=== PATIENT | female | born 1985 | race Caucasian/White ===

== ENCOUNTER 2017-02-23 22:13 | Emergency (ER) | payer OTHER ==
[2017-02-23 23:21] LABS: Hematocrit 34 % (35-47); Hemoglobin 11.3 g/dl (12.0-16.0); Mean Corpuscular HGB Conc 33 g/dl (31-36); Mean Corpuscular Hemoglobin 29 pg (27-31); Mean Corpuscular Volume 87 fL (80-97); Mean Platelet Volume 9 um3 (7.4-10.4); Red Blood Count 3.91 10^6/ul (4.0-5.4); Red Cell Distribution Width 14 % (10.5-15); White Blood Count 9.1 10^3/ul (3.5-10.8)
[2017-02-23 23:23] LABS: Urine Bilirubin Negative (Negative); Urine Glucose Negative (Negative); Urine Nitrite Negative (Negative)
[2017-02-23 23:24] LABS: Add Diff/Slide Review? Slide Review Added; Comments Flag Yes
[2017-02-23 23:37] LABS: ALT 45 U/L (7-52); AST 23 U/L (13-39); Albumin 4.1 g/dL (3.2-5.2); Alkaline Phosphatase 48 U/L (34-104); Anion Gap 7 mmol/L (2-11); BUN/Creatinine Ratio 23.2 (8-20); Blood Urea Nitrogen 16 mg/dL (6-24); C Reactive Protein 8.72 mg/L (< 5.00); CO2 Carbon Dioxide 26 mmol/L (22-32); Calcium 9.4 mg/dL (8.6-10.3); Chloride 100 mmol/L (101-111); Creatine Kinase 79 U/L (10-223); Glucose 93 mg/dL (70-100); Lipase 22 U/L (11.0-82.0); Magnesium 1.9 mg/dL (1.9-2.7); Sodium 133 mmol/L (133-145); Total Protein 7.1 g/dL (6.4-8.9)
[2017-02-23 23:50] LABS: TSH (Thyroid Stimulating Horm) 3.07 mcIU/mL (0.34-5.60)
[2017-02-24] MEDS ORDERED: Iohexol 350* (CONTRAST) 500 ML MDV IV ONE (01:58)
[2017-02-24] MEDS ORDERED: Ondansetron ODT TAB* 4 MG ONE (03:45)
[2017-02-24] MEDS ORDERED: Ondansetron ODT TAB* 4 MG PO ONE (03:47)
--- NOTE | 2017-02-24 04:56 | ED ---
Brooklynn Du Anna, scribed for Jordy Au on 02/24/17 at 0033 . Progress - Progress Note Progress Note: This is a 31 y/o female presenting with swelling in the upper legs. Labs, CT, and US were done and were all within normal limits. She will be discharged with a diagnosis of dependent edema. Course/Dx - Diagnoses Provider Diagnoses: Peripheral edema Diagnostics - Vital Signs Vital Signs Temp Pulse Resp BP Pulse Ox 02/23/17 23:10 71 98 02/23/17 22:30 74 108/68 96 02/23/17 22:23 76 97 02/23/17 22:21 124/68 02/23/17 22:17 98.9 F 74 16 124/68 96 - Laboratory Lab Results: Lab Results 02/23/17 02/23/17 02/23/17 Range/Units 23:05 23:05 23:05 WBC 9.1 (3.5-10.8) 10^3/ul RBC 3.91 L (4.0-5.4) 10^6/ul Hgb 11.3 L (12.0-16.0) g/dl Hct 34 L (35-47) % MCV 87 (80-97) fL MCH 29 (27-31) pg MCHC 33 (31-36) g/dl RDW 14 (10.5-15) % Plt Count 195 (150-450) 10^3/ul MPV 9 (7.4-10.4) um3 Neut % (Auto) 34.1 L (38-83) % Lymph % (Auto) 54.2 H (25-47) % Oliver % (Auto) 8.6 (1-9) % Eos % (Auto) 2.5 (0-6) % Baso % (Auto) 0.6 (0-2) % Absolute Neuts (auto) 3.1 (1.5-7.7) 10^3/ul Absolute Lymphs (auto) 4.9 H (1.0-4.8) 10^3/ul Absolute Monos (auto) 0.8 (0-0.8) 10^3/ul Absolute Eos (auto) 0.2 (0-0.6) 10^3/ul Absolute Basos (auto) 0.1 (0-0.2) 10^3/ul Absolute Nucleated RBC 0.01 10^3/ul Nucleated RBC % 0.1 INR (Anticoag Therapy) 0.85 L (0.89-1.11) APTT 28.7 (26.0-36.3) seconds D-Dimer, Quantitative 202 (Less Than 230) ng/mL Sodium (133-145) mmol/L Potassium (3.5-5.0) mmol/L Chloride (101-111) mmol/L Carbon Dioxide (22-32) mmol/L Anion Gap (2-11) mmol/L BUN (6-24) mg/dL Creatinine (0.51-0.95) mg/dL Est GFR ( Amer) (>60) Est GFR (Non-Af Amer) (>60) BUN/Creatinine Ratio (8-20) Glucose (70-100) mg/dL Lactic Acid (0.5-2.0) mmol/L Calcium (8.6-10.3) mg/dL Magnesium (1.9-2.7) mg/dL Total Bilirubin (0.2-1.0) mg/dL AST (13-39) U/L ALT (7-52) U/L Alkaline Phosphatase (34-104) U/L Total Creatine Kinase (10-223) U/L CK-MB (CK-2) (0.6-6.3) ng/mL Troponin I (<0.04) ng/mL C-Reactive Protein (< 5.00) mg/L B-Natriuretic Peptide ( - 100) pg/mL Total Protein (6.4-8.9) g/dL Albumin (3.2-5.2) g/dL Globulin (2-4) g/dL Albumin/Globulin Ratio (1-3) Lipase (11.0-82.0) U/L TSH (0.34-5.60) mcIU/mL Beta HCG, Quant mIU/mL Urine Color Yellow Urine Appearance Clear Urine pH 6.0 (5-9) Ur Specific [place] 1.018 (1.010-1.030) Urine Protein Negative (Negative) Urine Ketones Negative (Negative) Urine Blood Negative (Negative) Urine Nitrate Negative (Negative) Urine Bilirubin Negative (Negative) Urine Urobilinogen Negative (Negative) Ur Leukocyte Esterase Negative (Negative) Urine Glucose Negative (Negative) Urine Ascorbic Acid * H (Negative) 02/23/17 02/23/17 02/23/17 Range/Units 23:05 23:05 23:05 WBC (3.5-10.8) 10^3/ul RBC (4.0-5.4) 10^6/ul Hgb (12.0-16.0) g/dl Hct (35-47) % MCV (80-97) fL MCH (27-31) pg MCHC (31-36) g/dl RDW (10.5-15) % Plt Count (150-450) 10^3/ul MPV (7.4-10.4) um3 Neut % (Auto) (38-83) % Lymph % (Auto) (25-47) % Oliver % (Auto) (1-9) % Eos % (Auto) (0-6) % Baso % (Auto) (0-2) % Absolute Neuts (auto) (1.5-7.7) 10^3/ul Absolute Lymphs (auto) (1.0-4.8) 10^3/ul Absolute Monos (auto) (0-0.8) 10^3/ul Absolute Eos (auto) (0-0.6) 10^3/ul Absolute Basos (auto) (0-0.2) 10^3/ul Absolute Nucleated RBC 10^3/ul Nucleated RBC % INR (Anticoag Therapy) (0.89-1.11) APTT (26.0-36.3) seconds D-Dimer, Quantitative (Less Than 230) ng/mL Sodium 133 (133-145) mmol/L Potassium 4.0 (3.5-5.0) mmol/L Chloride 100 L (101-111) mmol/L Carbon Dioxide 26 (22-32) mmol/L Anion Gap 7 (2-11) mmol/L BUN 16 (6-24) mg/dL Creatinine 0.69 (0.51-0.95) mg/dL Est GFR ( Amer) 126.0 (>60) Est GFR (Non-Af Amer) 98.0 (>60) BUN/Creatinine Ratio 23.2 H (8-20) Glucose 93 (70-100) mg/dL Lactic Acid 1.1 (0.5-2.0) mmol/L Calcium 9.4 (8.6-10.3) mg/dL Magnesium 1.9 (1.9-2.7) mg/dL Total Bilirubin 0.20 (0.2-1.0) mg/dL AST 23 (13-39) U/L ALT 45 (7-52) U/L Alkaline Phosphatase 48 (34-104) U/L Total Creatine Kinase 79 (10-223) U/L CK-MB (CK-2) 1.9 (0.6-6.3) ng/mL Troponin I 0.00 (<0.04) ng/mL C-Reactive Protein 8.72 H (< 5.00) mg/L B-Natriuretic Peptide 17 ( - 100) pg/mL Total Protein 7.1 (6.4-8.9) g/dL Albumin 4.1 (3.2-5.2) g/dL Globulin 3.0 (2-4) g/dL Albumin/Globulin Ratio 1.4 (1-3) Lipase 22 (11.0-82.0) U/L TSH 3.07 (0.34-5.60) mcIU/mL Beta HCG, Quant < 0.60 mIU/mL Urine Color Urine Appearance Urine pH (5-9) Ur Specific [place] (1.010-1.030) Urine Protein (Negative) Urine Ketones (Negative) Urine Blood (Negative) Urine Nitrate (Negative) Urine Bilirubin (Negative) Urine Urobilinogen (Negative) Ur Leukocyte Esterase (Negative) Urine Glucose (Negative) Urine Ascorbic Acid (Negative) Result Diagrams: 02/23/17 23:05 02/23/17 23:05 Lab Statement: Any lab studies that have been ordered have been reviewed, and results considered in the medical decision making process. - Ultrasound No standard instances Ultrasound Interpretation: No Acute Changes Ultrasound Interpretation Completed By: Radiologist - BILATERAL LE VENOUS DUPLEX IMPRESSION: Negative for DVT The documentation as recorded by the Brooklynn klein Anna accurately reflects the service I personally performed and the decisions made by Angely morales Emmanuel.
[2017-02-24 05:08] VITALS: BP 125/67
--- NOTE | 2017-02-24 10:58 | RAD ---
HISTORY: Bilateral pedal edema TECHNIQUE: Multiple transverse and longitudinal ultrasound images were obtained of the veins of the bilateral lower extremity using grayscale, color Doppler, and spectral Doppler imaging with and without compression and with augmentation. FINDINGS: VEINS: The common femoral vein, deep femoral vein, femoral vein and popliteal vein are compressible throughout their course, with normal flow on color Doppler imaging and normal response to augmentation on spectral Doppler imaging. SOFT TISSUES: Grossly normal. No large popliteal fossa cyst was identified. IMPRESSION: No sonographic evidence of deep vein thrombosis.
--- NOTE | 2017-02-24 11:36 | RAD ---
INDICATION: Shortness of breath, bloating abdominal pain and pedal edema COMPARISON: None. TECHNIQUE: Multidetector CT images of the chest, abdomen and pelvis were obtained from the lung apices to the ischial tuberosities after the injection of 100 mL Omnipaque 350. The patient received oral contrast as well. CHEST: During thoracic imaging the injected contrast is seen filling the heart, aorta and arterial vascular system. Bolus timing is not conducive to evaluating for acute pulmonary embolism. The lungs are clear. There are no large pleural effusions. There is no mediastinal or hilar lymphadenopathy. The heart and major vascular structures are grossly normal in appearance. ABDOMEN \T\ PELVIS: The liver is enlarged measuring up to 23.1 cm in greatest cephalocaudal dimension. The liver parenchyma is homogenously hypodense relative to the spleen. There are no focal enhancing masses or surface irregularity. The main portal vein is mildly enlarged measuring 16 mm in diameter. The normally attenuating spleen measures 14 cm in greatest axial dimension. The pancreas is grossly normal in appearance. The gallbladder is mostly contracted which prevents meaningful evaluation. At the left adrenal gland (image 24) there is a low-density 4 mm structure that is incompletely characterized on this CT examination but is most consistent with a lipoma. The kidneys are normal in appearance without focal mass, calcification or signs of hydronephrosis. The urinary bladder is nearly completely decompressed which prevents reliable evaluation. The oral contrast has progressed as far as the descending colon. The small and large bowel are not distended. The 7 mm partially gas-filled appendix is identified in the right lower quadrant (axial image 49 and coronal image 59). There is no gross retroperitoneal or mesenteric lymphadenopathy. The pelvic viscera is normal in appearance. Surgical clips at the pelvic adnexa are most consistent with reported history of tubal ligation. The abdominal aorta and iliac arteries are normal in course and diameter. Incidental note is made of a left retroaortic renal vein. Multilevel degenerative changes of the thoracic and lumbar spine include loss of intervertebral disc height and mild marginal osteophyte formation. There are no sinister bone lesions. IMPRESSION: 1. Bolus timing is inadequate for evaluation of pulmonary embolism. This study is nondiagnostic for pulmonary embolism. 2. Hepatosplenomegaly with likely hepatic steatosis or other chronic infiltrative disease of the liver. Please correlate to LFTs. 3. No acute inflammatory disease or obstruction identified in the gastrointestinal tract. #4 additional chronic, degenerative and iatrogenic findings described in the body the report unlikely to be directly related to the patient's current presentation.
--- NOTE | 2017-03-06 08:38 | ED ---
Chase Du Billy, scribed for Noel Brito MD on 02/23/17 at 2245 . Complex/Multi-Sys Presentation - HPI Summary HPI Summary: Patient is a 31 year-old female coming to [facility] for evaluation of numerous complaints. She states that for the last 3 weeks, she has had abdominal bloating. Two weeks ago, she began to have intermittent racing palpitations which last for minutes at a time. About five days ago, she began to have shortness of breath. She denies any history of blood clots. Denies any oral control use. LMP 4 weeks ago. - History Of Current Complaint Chief Complaint: EDExtremityLower Time Seen by Provider: 02/23/17 22:38 Hx Obtained From: Patient Onset/Duration: Gradual Onset, Lasting Weeks Timing: Intermittent, Lasting: Severity Currently: Moderate Severity Initially: Moderate Aggravating Factor(s): none Alleviating Factor(s): none - Allergies/Home Medications Allergies/Adverse Reactions: Allergies Allergy/AdvReac Type Severity Reaction Status Date / Time Diphenhydramine Allergy Dizziness Verified 02/23/17 22:26 [From Benadryl] Hydroxyzine Allergy See Comment Verified 02/23/17 22:26 Latex Allergy Rash Verified 02/23/17 22:26 PMH/Surg Hx/FS Hx/Imm Hx Cardiovascular History: Reports: Hx Hypertension GI History: Reports: Hx Irritable Bowel Neurological History: Reports: Hx Seizures Psychiatric History: Reports: Hx Anxiety - Surgical History Surgery Procedure, Year, and Place: Tubal ligation 2005 - Immunization History Date of Tetanus Vaccine: utd Date of Influenza Vaccine: utd Infectious Disease History: No Infectious Disease History: Denies: Traveled Outside the [place] in Last 30 Days - Family History Known Family History: Positive: Cardiac Disease - Social History Alcohol Use: None Substance Use Type: Reports: None Smoking Status (MU): Former Smoker Review of Systems Positive: Palpitations. Negative: Chest Pain Positive: Shortness Of Breath Gastrointestinal: Other - abdominal bloating Positive: Edema All Other Systems Reviewed And Are Negative: Yes Physical Exam Triage Information Reviewed: Yes Vital Signs On Initial Exam: Initial Vitals Temp Pulse Resp BP Pulse Ox 98.9 F 74 16 124/68 96 02/23/17 22:17 02/23/17 22:17 02/23/17 22:17 02/23/17 22:17 02/23/17 22:17 Vital Signs Reviewed: Yes Appearance: Positive: Well-Appearing, No Pain Distress Skin: Positive: Warm, Skin Color Reflects Adequate Perfusion, Dry Head/Face: Positive: Normal Head/Face Inspection Eyes: Positive: EOMI, EDWARD ENT: Positive: Normal ENT inspection Neck: Positive: Supple, Nontender Respiratory/Lung Sounds: Positive: Clear to Auscultation, Breath Sounds Present Cardiovascular: Positive: RRR Abdomen Description: Positive: Distended, Other: - Minimal diffuse tenderness. Musculoskeletal: Positive: Strength/ROM Intact, Edema Left - Bilateral pedal edema., Edema Right - Bilateral pedal edema. Neurological: Positive: Normal, Sensory/Motor Intact, Alert, Oriented to Person Place, Time Psychiatric: Positive: Affect/Mood Appropriate - [place] Coma Scale Coma Scale Total: 15 Diagnostics - Vital Signs Vital Signs Temp Pulse Resp BP Pulse Ox 02/23/17 22:17 98.9 F 74 16 124/68 96 - Laboratory Lab Results: Lab Results 02/23/17 02/23/17 02/23/17 Range/Units 23:05 23:05 23:05 WBC 9.1 (3.5-10.8) 10^3/ul RBC 3.91 L (4.0-5.4) 10^6/ul Hgb 11.3 L (12.0-16.0) g/dl Hct 34 L (35-47) % MCV 87 (80-97) fL MCH 29 (27-31) pg MCHC 33 (31-36) g/dl RDW 14 (10.5-15) % Plt Count 195 (150-450) 10^3/ul MPV 9 (7.4-10.4) um3 Neut % (Auto) 34.1 L (38-83) % Lymph % (Auto) 54.2 H (25-47) % [place] % (Auto) 8.6 (1-9) % Eos % (Auto) 2.5 (0-6) % Baso % (Auto) 0.6 (0-2) % Absolute Neuts (auto) 3.1 (1.5-7.7) 10^3/ul Absolute Lymphs (auto) 4.9 H (1.0-4.8) 10^3/ul Absolute Monos (auto) 0.8 (0-0.8) 10^3/ul Absolute Eos (auto) 0.2 (0-0.6) 10^3/ul Absolute Basos (auto) 0.1 (0-0.2) 10^3/ul Absolute Nucleated RBC 0.01 10^3/ul Nucleated RBC % 0.1 INR (Anticoag Therapy) 0.85 L (0.89-1.11) APTT 28.7 (26.0-36.3) seconds D-Dimer, Quantitative 202 (Less Than 230) ng/mL Sodium (133-145) mmol/L Potassium (3.5-5.0) mmol/L Chloride (101-111) mmol/L Carbon Dioxide (22-32) mmol/L Anion Gap (2-11) mmol/L BUN (6-24) mg/dL Creatinine (0.51-0.95) mg/dL Est GFR ( Amer) (>60) Est GFR (Non-Af Amer) (>60) BUN/Creatinine Ratio (8-20) Glucose (70-100) mg/dL Lactic Acid (0.5-2.0) mmol/L Calcium (8.6-10.3) mg/dL Magnesium (1.9-2.7) mg/dL Total Bilirubin (0.2-1.0) mg/dL AST (13-39) U/L ALT (7-52) U/L Alkaline Phosphatase (34-104) U/L Total Creatine Kinase (10-223) U/L CK-MB (CK-2) (0.6-6.3) ng/mL Troponin I (<0.04) ng/mL C-Reactive Protein (< 5.00) mg/L B-Natriuretic Peptide ( - 100) pg/mL Total Protein (6.4-8.9) g/dL Albumin (3.2-5.2) g/dL Globulin (2-4) g/dL Albumin/Globulin Ratio (1-3) Lipase (11.0-82.0) U/L TSH (0.34-5.60) mcIU/mL Beta HCG, Quant mIU/mL Urine Color Yellow Urine Appearance Clear Urine pH 6.0 (5-9) Ur Specific [place] 1.018 (1.010-1.030) Urine Protein Negative (Negative) Urine Ketones Negative (Negative) Urine Blood Negative (Negative) Urine Nitrate Negative (Negative) Urine Bilirubin Negative (Negative) Urine Urobilinogen Negative (Negative) Ur Leukocyte Esterase Negative (Negative) Urine Glucose Negative (Negative) Urine Ascorbic Acid * H (Negative) 02/23/17 02/23/17 02/23/17 Range/Units 23:05 23:05 23:05 WBC (3.5-10.8) 10^3/ul RBC (4.0-5.4) 10^6/ul Hgb (12.0-16.0) g/dl Hct (35-47) % MCV (80-97) fL MCH (27-31) pg MCHC (31-36) g/dl RDW (10.5-15) % Plt Count (150-450) 10^3/ul MPV (7.4-10.4) um3 Neut % (Auto) (38-83) % Lymph % (Auto) (25-47) % [place] % (Auto) (1-9) % Eos % (Auto) (0-6) % Baso % (Auto) (0-2) % Absolute Neuts (auto) (1.5-7.7) 10^3/ul Absolute Lymphs (auto) (1.0-4.8) 10^3/ul Absolute Monos (auto) (0-0.8) 10^3/ul Absolute Eos (auto) (0-0.6) 10^3/ul Absolute Basos (auto) (0-0.2) 10^3/ul Absolute Nucleated RBC 10^3/ul Nucleated RBC % INR (Anticoag Therapy) (0.89-1.11) APTT (26.0-36.3) seconds D-Dimer, Quantitative (Less Than 230) ng/mL Sodium 133 (133-145) mmol/L Potassium 4.0 (3.5-5.0) mmol/L Chloride 100 L (101-111) mmol/L Carbon Dioxide 26 (22-32) mmol/L Anion Gap 7 (2-11) mmol/L BUN 16 (6-24) mg/dL Creatinine 0.69 (0.51-0.95) mg/dL Est GFR ( Amer) 126.0 (>60) Est GFR (Non-Af Amer) 98.0 (>60) BUN/Creatinine Ratio 23.2 H (8-20) Glucose 93 (70-100) mg/dL Lactic Acid 1.1 (0.5-2.0) mmol/L Calcium 9.4 (8.6-10.3) mg/dL Magnesium 1.9 (1.9-2.7) mg/dL Total Bilirubin 0.20 (0.2-1.0) mg/dL AST 23 (13-39) U/L ALT 45 (7-52) U/L Alkaline Phosphatase 48 (34-104) U/L Total Creatine Kinase 79 (10-223) U/L CK-MB (CK-2) 1.9 (0.6-6.3) ng/mL Troponin I 0.00 (<0.04) ng/mL C-Reactive Protein 8.72 H (< 5.00) mg/L B-Natriuretic Peptide 17 ( - 100) pg/mL Total Protein 7.1 (6.4-8.9) g/dL Albumin 4.1 (3.2-5.2) g/dL Globulin 3.0 (2-4) g/dL Albumin/Globulin Ratio 1.4 (1-3) Lipase 22 (11.0-82.0) U/L TSH 3.07 (0.34-5.60) mcIU/mL Beta HCG, Quant < 0.60 mIU/mL Urine Color Urine Appearance Urine pH (5-9) Ur Specific [place] (1.010-1.030) Urine Protein (Negative) Urine Ketones (Negative) Urine Blood (Negative) Urine Nitrate (Negative) Urine Bilirubin (Negative) Urine Urobilinogen (Negative) Ur Leukocyte Esterase (Negative) Urine Glucose (Negative) Urine Ascorbic Acid (Negative) Result Diagrams: 02/23/17 23:05 02/23/17 23:05 Lab Statement: Any lab studies that have been ordered have been reviewed, and results considered in the medical decision making process. Complex Multi-Symp Course/Dx Course Of Treatment: no critical care time Assessment/Plan: STABLE IN ED. DISPOSITION PENDING AT SHIFT CHANGE. - Diagnoses Provider Diagnoses: Peripheral edema Discharge - Discharge Plan Condition: Stable Disposition: OTHER Discharge Disposition Comment: C Patient Education Materials: Edema (ED) Referrals: Lorri Daniels [Primary Care Provider] - The documentation as recorded by the Chase klein Billy accurately reflects the service I personally performed and the decisions made by me, Noel Brito MD.
== END 2017-02-24 04:50 | disposition home or self-care (01) ==
LOC: ED 22:13
DX: R60.0 Localized edema (principal)
CPT/HCPCS: 36415; 71275; 74177; 80053; 81003; 82550; 82553; 83605; 83690; 83735; 83880; 84443; 84484; 84702; 85025; 85379; 85610; 85730; 86140; 93970; 99282; A9270-GY; Q9967

== ENCOUNTER 2017-03-03 20:32 | Emergency (ER) | payer OTHER ==
[2017-03-03] MEDS ORDERED: Gabapentin CAP(*) 300 MG PO ONE (21:08)
--- NOTE | 2017-03-03 21:40 | ED ---
Angel Du Michael, scribed for Anton Duarte MD on 03/03/17 at 2110 . Psychiatric Complaint - HPI Summary HPI Summary: 31 y/o female was BIBA to the ED presenting with a panic attack and nerve pain that started 3 days ago and has worsened since the time of onset. The pt has been at [facility] for 3 weeks, and she states that currently she is out of Gabapentin and states the insurance company will not pay for it anymore. She normally takes 1800mg per day. The pt denies SI or HI The PMHx is significant for anxiety, sz, and HTN. - History Of Current Complaint Chief Complaint: EDGeneral Time Seen by Provider: 03/03/17 20:52 Hx Obtained From: Patient, EMS, Medical Records Onset/Duration: Sudden Onset, Lasting Days, Still Present Timing: Constant Severity Initially: Moderate Severity Currently: Moderate Character: Anxious Aggravating Factor(s): Recent Stress - out of medication Alleviating Factor(s): Nothing Associated Signs And Symptoms: Positive: Negative Has Suicidal: Denies: Thoughts, With A Plan Has Homicidal: Denies: Thoughts, With A Plan - Allergies/Home Medications Allergies/Adverse Reactions: Allergies Allergy/AdvReac Type Severity Reaction Status Date / Time Diphenhydramine Allergy Dizziness Verified 02/23/17 22:26 [From Benadryl] Hydroxyzine Allergy See Comment Verified 02/23/17 22:26 Latex Allergy Rash Verified 02/23/17 22:26 PMH/Surg Hx/FS Hx/Imm Hx Endocrine/Hematology History: Denies: Hx Diabetes Cardiovascular History: Reports: Hx Hypertension History: Denies: Hx Renal Disease Neurological History: Reports: Hx Seizures Psychiatric History: Reports: Hx Anxiety - Surgical History Surgery Procedure, Year, and Place: tubal ligation - Immunization History Date of Tetanus Vaccine: utd Date of Influenza Vaccine: utd Infectious Disease History: Denies: Traveled Outside the [place] in Last 30 Days - Social History Occupation: Unemployed Lives: [facility] Alcohol Use: None Substance Use Type: Reports: Prescribed Substance Use Comment - Amount & Last Used: vicodin Smoking Status (MU): Former Smoker Review of Systems Negative: Fever Psychological: Other - negative SI and HI Positive: Anxious - and nerve pain. All Other Systems Reviewed And Are Negative: Yes Physical Exam Triage Information Reviewed: Yes Vital Signs On Initial Exam: Initial Vitals Temp Pulse Resp BP Pulse Ox 98.9 F 91 22 158/99 99 03/03/17 20:35 03/03/17 20:35 03/03/17 20:35 03/03/17 20:35 03/03/17 20:35 Vital Signs Reviewed: Yes Appearance: Positive: Well-Appearing, No Pain Distress Skin: Positive: Warm, Skin Color Reflects Adequate Perfusion, Dry Head/Face: Positive: Normal Head/Face Inspection Eyes: Positive: Normal ENT: Positive: Normal ENT inspection Neck: Positive: Supple, Nontender Respiratory/Lung Sounds: Positive: Clear to Auscultation, Breath Sounds Present Cardiovascular: Positive: RRR Abdomen Description: Positive: Nontender, Soft Bowel Sounds: Positive: Present Musculoskeletal: Positive: Normal Neurological: Positive: Normal Psychiatric: Positive: Anxious Diagnostics - Vital Signs Vital Signs Temp Pulse Resp BP Pulse Ox 03/03/17 20:35 98.9 F 91 22 158/99 99 - Laboratory Lab Statement: Any lab studies that have been ordered have been reviewed, and results considered in the medical decision making process. Course/Dx - Course Course Of Treatment: Ms. Louie is clearly worried about her gabapentin. I gave her a dose here and 6 to go to get her through the next couple of days. - Differential Dx/Clinical Impression Provider Diagnosis: Panic attack Discharge - Discharge Plan Condition: Stable Disposition: HOME Referrals: Lorri Daniels [Primary Care Provider] - The documentation as recorded by the Angel klein Michael accurately reflects the service I personally performed and the decisions made by me, Anton Duarte MD.
[2017-03-03 21:43] VITALS: BP 137/75
[2017-03-03] MEDS ORDERED: Gabapentin CAP(*) 300 MG PO SCH (22:00)
== END 2017-03-03 21:46 | disposition home or self-care (01) ==
LOC: ED 20:32
DX: F41.0 Panic disorder [episodic paroxysmal anxiety] (principal); F41.9 Anxiety disorder, unspecified; Z87.891 Personal history of nicotine dependence
CPT/HCPCS: 99282; A9270-GY

== ENCOUNTER 2017-03-12 19:16 | Emergency (ER) | payer OTHER ==
[2017-03-12] MEDS ORDERED: Acetaminophen TAB* 325 MG PO ONE (19:52)
[2017-03-12 20:11] LABS: Hematocrit 35 % (35-47); Hemoglobin 12.1 g/dl (12.0-16.0); Mean Corpuscular HGB Conc 34 g/dl (31-36); Mean Corpuscular Hemoglobin 30 pg (27-31); Mean Corpuscular Volume 87 fL (80-97); Mean Platelet Volume 9 um3 (7.4-10.4); Red Blood Count 4.05 10^6/ul (4.0-5.4); Red Cell Distribution Width 14 % (10.5-15); White Blood Count 8.7 10^3/ul (3.5-10.8)
[2017-03-12 20:30] LABS: ALT 43 U/L (7-52); Albumin 4.2 g/dL (3.2-5.2); Alkaline Phosphatase 55 U/L (34-104); BUN/Creatinine Ratio 17.2 (8-20); Blood Urea Nitrogen 16 mg/dL (6-24); CO2 Carbon Dioxide 23 mmol/L (22-32); Chloride 101 mmol/L (101-111); EGFR African American 89.3 (>60); EGFR Non-African American 69.4 (>60); Globulin 2.9 g/dL (2-4); Glucose 143 mg/dL (70-100); Total Protein 7.1 g/dL (6.4-8.9)
[2017-03-12 20:43] LABS: AST 29 U/L (13-39); Potassium 4.2 mmol/L (3.5-5.0)
[2017-03-12 20:47] LABS: Acetaminophen < 15 mcg/mL; Alcohol < 10 mg/dL (<10); Salicylate < 2.50 mg/dL (<30)
[2017-03-12 21:07] LABS: Urine Bilirubin Negative (Negative); Urine Glucose Negative (Negative); Urine Nitrite Negative (Negative)
[2017-03-12 21:31] LABS: Benzodiazepine Urine Screen None Detected (None Detect)
--- NOTE | 2017-03-12 22:01 | ED ---
Reggie Du Benjamin, scribed for Todd Kuhn MD on 03/12/17 at 1929 . Psychiatric Complaint - HPI Summary HPI Summary: 31yo female c/o feeling anxious, having mood swings, and unable to sleep at night for the past few days. Pt s PCP recently switched her meds, been off Depakote and dropped Prozac dose from 40ml to 20ml. Hx includes bipolar, anxiety , and HTN. FHx of DM and HTN. Pt does not smoke or drink. - History Of Current Complaint Chief Complaint: EDMentalHealth Time Seen by Provider: 03/12/17 19:20 Hx Obtained From: Patient ?: No Onset/Duration: Sudden Onset, Lasting Days, Still Present Timing: Constant Severity Initially: Mild Severity Currently: Mild Character: Anxious Aggravating Factor(s): Medication Non-compliance - recent med change Alleviating Factor(s): Nothing Associated Signs And Symptoms: Positive: Negative - Allergies/Home Medications Allergies/Adverse Reactions: Allergies Allergy/AdvReac Type Severity Reaction Status Date / Time Hydroxyzine Allergy See Comment Verified 03/12/17 19:28 Latex Allergy Rash Verified 03/12/17 19:28 Home Medications: Home Medications Divalproex Sodium [Depakote] 250 mg PO BID 03/12/17 [History Confirmed 03/12/17] FLUoxetine CAP* [PROzac CAP*] 20 mg PO DAILY 03/12/17 [History Confirmed ] Gabapentin TAB(NF) [Neurontin 600 mg TAB(NF)] 600 mg PO TID 03/12/17 [History Confirmed 03/12/17] Hydrochlorothiazide [Microzide-] 12.5 mg PO DAILY 03/12/17 [History Confirmed ] Lisinopril [Prinivil TAB 20 mg] 20 mg PO DAILY 03/12/17 [History Confirmed 03/12] Melatonin 5 mg PO BEDTIME 03/12/17 [History Confirmed 03/12/17] Metoprolol Tartrate [Lopressor] 50 mg PO BID 03/12/17 [History Confirmed ] Mirtazapine 45 mg PO BEDTIME 03/12/17 [History Confirmed 03/12/17] Naltrexone (NF) 50 mg PO BEDTIME 03/12/17 [History Confirmed 03/12/17] Nicotine [Gnp Nicotine Transdermal] 7 mg TOPICAL DAILY 03/12/17 [History Confirmed 03/12/17] Omeprazole CAP* [Prilosec CAP* 20 MG] 40 mg PO DAILY 03/12/17 [History Confirmed 03/12/17] cloNIDine TAB* [Catapres 0.1 MG TAB*] 0.1 mg PO DAILY 03/12/17 [History Confirmed 03/12/17] PMH/Surg Hx/FS Hx/Imm Hx Endocrine/Hematology History: Denies: Hx Diabetes Cardiovascular History: Reports: Hx Hypertension History: Denies: Hx Renal Disease Neurological History: Reports: Hx Seizures Psychiatric History: Reports: Hx Anxiety - Surgical History Surgery Procedure, Year, and Place: tubal ligation - Immunization History Date of Tetanus Vaccine: utd Date of Influenza Vaccine: utd Infectious Disease History: No Infectious Disease History: Denies: Traveled Outside the [place] in Last 30 Days - Family History Known Family History: Positive: Hypertension, Diabetes Negative: Cardiac Disease - Social History Occupation: Unemployed Lives: Alone Alcohol Use: None Substance Use Type: Reports: Prescribed Substance Use Comment - Amount & Last Used: vicodin Smoking Status (MU): Former Smoker Review of Systems Constitutional: Negative Eyes: Negative ENT: Negative Cardiovascular: Negative Respiratory: Negative Gastrointestinal: Negative Genitourinary: Negative Musculoskeletal: Negative Skin: Negative Neurological: Negative Positive: Anxious All Other Systems Reviewed And Are Negative: Yes Physical Exam Triage Information Reviewed: Yes Vital Signs On Initial Exam: Initial Vitals Temp Pulse Resp BP Pulse Ox 99.8 F 90 16 140/71 97 03/12/17 19:23 03/12/17 19:23 03/12/17 19:23 03/12/17 19:23 03/12/17 19:23 Vital Signs Reviewed: Yes Appearance: Positive: No Pain Distress, Obese Skin: Positive: Warm Head/Face: Positive: Normal Head/Face Inspection Eyes: Positive: EDWARD ENT: Positive: Hearing grossly normal Neck: Positive: Supple Respiratory/Lung Sounds: Positive: Breath Sounds Present Cardiovascular: Positive: RRR Abdomen Description: Positive: Nontender, Soft Bowel Sounds: Positive: Present Musculoskeletal: Positive: Strength/ROM Intact Neurological: Positive: Sensory/Motor Intact, Alert, Oriented to Person Place, Time Psychiatric: Positive: Anxious Diagnostics - Vital Signs Vital Signs Temp Pulse Resp BP Pulse Ox 03/12/17 19:23 99.8 F 90 16 140/71 97 - Laboratory Lab Results: Lab Results 03/12/17 03/12/17 03/12/17 Range/Units 20:00 20:00 20:55 WBC 8.7 (3.5-10.8) 10^3/ul RBC 4.05 (4.0-5.4) 10^6/ul Hgb 12.1 (12.0-16.0) g/dl Hct 35 (35-47) % MCV 87 (80-97) fL MCH 30 (27-31) pg MCHC 34 (31-36) g/dl RDW 14 (10.5-15) % Plt Count 254 (150-450) 10^3/ul MPV 9 (7.4-10.4) um3 Neut % (Auto) 41.4 (38-83) % Lymph % (Auto) 47.6 H (25-47) % Leake % (Auto) 7.5 (1-9) % Eos % (Auto) 2.2 (0-6) % Baso % (Auto) 1.3 (0-2) % Absolute Neuts (auto) 3.6 (1.5-7.7) 10^3/ul Absolute Lymphs (auto) 4.1 (1.0-4.8) 10^3/ul Absolute Monos (auto) 0.7 (0-0.8) 10^3/ul Absolute Eos (auto) 0.2 (0-0.6) 10^3/ul Absolute Basos (auto) 0.1 (0-0.2) 10^3/ul Absolute Nucleated RBC 0.01 10^3/ul Nucleated RBC % 0.2 Sodium 132 L (133-145) mmol/L Potassium 4.2 (3.5-5.0) mmol/L Chloride 101 (101-111) mmol/L Carbon Dioxide 23 (22-32) mmol/L Anion Gap 8 (2-11) mmol/L BUN 16 (6-24) mg/dL Creatinine 0.93 (0.51-0.95) mg/dL Est GFR ( Amer) 89.3 (>60) Est GFR (Non-Af Amer) 69.4 (>60) BUN/Creatinine Ratio 17.2 (8-20) Glucose 143 H (70-100) mg/dL Calcium 9.0 (8.6-10.3) mg/dL Total Bilirubin 0.30 (0.2-1.0) mg/dL AST 29 (13-39) U/L ALT 43 (7-52) U/L Alkaline Phosphatase 55 (34-104) U/L Total Protein 7.1 (6.4-8.9) g/dL Albumin 4.2 (3.2-5.2) g/dL Globulin 2.9 (2-4) g/dL Albumin/Globulin Ratio 1.4 (1-3) TSH 1.10 (0.34-5.60) mcIU/mL Urine Color Straw Urine Appearance Clear Urine pH 6.0 (5-9) Ur Specific [place] 1.012 (1.010-1.030) Urine Protein Negative (Negative) Urine Ketones 1+ H (Negative) Urine Blood Negative (Negative) Urine Nitrate Negative (Negative) Urine Bilirubin Negative (Negative) Urine Urobilinogen Negative (Negative) Ur Leukocyte Esterase Negative (Negative) Urine Glucose Negative (Negative) Salicylates < 2.50 (<30) mg/dL Urine Opiates Screen (None Detect) Acetaminophen < 15 mcg/mL Ur Barbiturates Screen (None Detect) Ur Phencyclidine Scrn (None Detect) Ur Amphetamines Screen (None Detect) U Benzodiazepines Scrn (None Detect) Urine Cocaine Screen (None Detect) U Cannabinoids Screen (None Detect) Serum Alcohol < 10 (<10) mg/dL 03/12/17 Range/Units 20:55 WBC (3.5-10.8) 10^3/ul RBC (4.0-5.4) 10^6/ul Hgb (12.0-16.0) g/dl Hct (35-47) % MCV (80-97) fL MCH (27-31) pg MCHC (31-36) g/dl RDW (10.5-15) % Plt Count (150-450) 10^3/ul MPV (7.4-10.4) um3 Neut % (Auto) (38-83) % Lymph % (Auto) (25-47) % Leake % (Auto) (1-9) % Eos % (Auto) (0-6) % Baso % (Auto) (0-2) % Absolute Neuts (auto) (1.5-7.7) 10^3/ul Absolute Lymphs (auto) (1.0-4.8) 10^3/ul Absolute Monos (auto) (0-0.8) 10^3/ul Absolute Eos (auto) (0-0.6) 10^3/ul Absolute Basos (auto) (0-0.2) 10^3/ul Absolute Nucleated RBC 10^3/ul Nucleated RBC % Sodium (133-145) mmol/L Potassium (3.5-5.0) mmol/L Chloride (101-111) mmol/L Carbon Dioxide (22-32) mmol/L Anion Gap (2-11) mmol/L BUN (6-24) mg/dL Creatinine (0.51-0.95) mg/dL Est GFR ( Amer) (>60) Est GFR (Non-Af Amer) (>60) BUN/Creatinine Ratio (8-20) Glucose (70-100) mg/dL Calcium (8.6-10.3) mg/dL Total Bilirubin (0.2-1.0) mg/dL AST (13-39) U/L ALT (7-52) U/L Alkaline Phosphatase (34-104) U/L Total Protein (6.4-8.9) g/dL Albumin (3.2-5.2) g/dL Globulin (2-4) g/dL Albumin/Globulin Ratio (1-3) TSH (0.34-5.60) mcIU/mL Urine Color Urine Appearance Urine pH (5-9) Ur Specific [place] (1.010-1.030) Urine Protein (Negative) Urine Ketones (Negative) Urine Blood (Negative) Urine Nitrate (Negative) Urine Bilirubin (Negative) Urine Urobilinogen (Negative) Ur Leukocyte Esterase (Negative) Urine Glucose (Negative) Salicylates (<30) mg/dL Urine Opiates Screen None detected (None Detect) Acetaminophen mcg/mL Ur Barbiturates Screen None detected (None Detect) Ur Phencyclidine Scrn None detected (None Detect) Ur Amphetamines Screen None detected (None Detect) U Benzodiazepines Scrn None detected (None Detect) Urine Cocaine Screen None detected (None Detect) U Cannabinoids Screen None detected (None Detect) Serum Alcohol (<10) mg/dL Result Diagrams: 03/12/17 20:00 03/12/17 20:00 Lab Statement: Any lab studies that have been ordered have been reviewed, and results considered in the medical decision making process. Re-Evaluation - Re-Evaluation First Eval Change: Improved - pt seemn and cleared by crisis Course/Dx - Course Assessment/Plan: Medically cleared for [facility] @2023. - Differential Dx/Clinical Impression Provider Diagnosis: Anxiety Discharge - Discharge Plan Condition: Improved Disposition: HOME Referrals: Lorri Daniels [Primary Care Provider] - Additional Instructions: Discharge to [facility] Residential: [address] [place] [address] Medication: Bring up Suboxone to Doctor on Staff. Per Dr. Ascencio (Psychiatrist) , he believes that you would benefit from it more than clonidine. The documentation as recorded by the Reggie klein Benjamin accurately reflects the service I personally performed and the decisions made by me, Todd Kuhn MD.
[2017-03-12 23:30] VITALS: BP 134/70
[2017-03-13 22:18] LABS: Anion Gap 13 mmol/L (2-11)
[2017-03-13 22:46] LABS: Sodium 137 mmol/L (133-145)
== END 2017-03-12 23:31 | disposition home or self-care (01) ==
LOC: ED 19:16
DX: F41.9 Anxiety disorder, unspecified (principal); Z87.891 Personal history of nicotine dependence
CPT/HCPCS: 36415; 80053; 80307; 80320; 80329; 81003; 84443; 85025; 99284; A9270-GY; G0480